=== PATIENT | male | born 1995 | race Caucasian/White ===

== ENCOUNTER 2016-09-20 18:14 | Emergency (ER) | payer OTHER ==
[2016-09-20 18:45] VITALS: BP 131/79
--- NOTE | 2016-09-20 19:24 | UC ---
Lower Extremity/Ankle HPI - HPI Summary HPI Summary: Struck R foot on dresser yesterday. Pain and swelling -- had marked swelling with bruising almost immediately, and since then area of bruising has spread out considerably. - History of Current Complaint Chief Complaint: UCLowerExtremity Stated Complaint: FOOT INJURY Time Seen by Provider: 09/20/16 19:03 Hx Obtained From: Patient Onset/Duration: Sudden Onset Severity Initially: Moderate Severity Currently: Moderate Aggravating Factor(s): Standing, Ambulation Alleviating Factor(s): Rest Able to Bear Weight: Yes - Allergies/Home Medications Allergies/Adverse Reactions: Allergies Allergy/AdvReac Type Severity Reaction Status Date / Time Bee Venom Allergy Anaphylatic Verified 09/20/16 18:37 Shock Home Medications: Home Medications Fluvoxamine (NF) [Luvox (NF)] 150 mg PO BID 09/20/16 [History Confirmed 09/20/16 ] Ibuprofen TAB* [Advil TAB*] 200 mg PO Q6H PRN 09/20/16 [History Confirmed ] QUEtiapine XR TAB* [SEROquel Xr TAB*] 50 mg PO BEDTIME 09/20/16 [History Confirmed 09/20/16] Quetiapine Fumarate [Seroquel Xr] 200 mg PO BEDTIME 09/20/16 [History Confirmed 09/20/16] Quetiapine Fumarate [Seroquel] 50 mg PO BEDTIME 09/20/16 [History Confirmed 02/28] PMH/Surg Hx/FS Hx/Imm Hx Previously Healthy: Yes - Surgical History Surgical History: None - Family History Known Family History: Positive: Hypertension - Social History Occupation: Unemployed Alcohol Use: None Substance Use Type: None Smoking Status (MU): Never Smoked Tobacco - Immunization History Most Recent Influenza Vaccination: none Review of Systems Constitutional: Negative Skin: Bruising Eyes: Negative ENT: Negative Respiratory: Negative Cardiovascular: Negative Gastrointestinal: Negative Genitourinary: Negative Motor: Negative Neurovascular: Negative Musculoskeletal: Arthralgia Neurological: Negative Psychological: Negative All Other Systems Reviewed And Are Negative: Yes Physical Exam Triage Information Reviewed: Yes Appearance: Well-Appearing, No Pain Distress, Well-Nourished Vital Signs: Initial Vital Signs Temp 97.8 F 09/20/16 18:41 Pulse 82 09/20/16 18:41 Resp 16 09/20/16 18:41 BP 131/79 09/20/16 18:41 Vital Signs Reviewed: Yes Eye Exam: Normal Eyes: Positive: Conjunctiva Clear ENT Exam: Normal ENT: Positive: Normal ENT inspection, Hearing grossly normal, Pharynx normal, TMs normal Dental Exam: Normal Neck exam: Normal Neck: Positive: Supple, Nontender, No Lymphadenopathy Respiratory Exam: Normal Respiratory: Positive: Chest non-tender, Lungs clear, Normal breath sounds, No respiratory distress, No accessory muscle use Cardiovascular Exam: Normal Cardiovascular: Positive: RRR, No Murmur Musculoskeletal: Positive: ROM Intact, Other: - swelling, bruising on R lateral foot, no point tenderness Neurological Exam: Normal Neurological: Positive: Alert Psychological Exam: Normal Skin Exam: Other - bruising Lower Extremity Course/Dx - Differential Dx/Diagnosis Provider Diagnoses: R foot hematoma. Elevated blood pressure due to pain Discharge - Discharge Plan Condition: Stable Disposition: HOME Patient Education Materials: Hematoma (ED) Referrals: Francie Aquino MD [Medical Doctor] - Additional Instructions: X-ray does not show fracture of bones. If you have prolonged pain or trouble with walking beyond the first week, please see your primary care provider.
--- NOTE | 2016-09-20 19:25 | RAD ---
INDICATION: Right foot injury COMPARISON: None TECHNIQUE: AP, lateral, and oblique views were obtained. FINDINGS: The bony structures, joint spaces, and soft tissues are normal for age. IMPRESSION: NEGATIVE EXAMINATION.
== END 2016-09-20 19:39 | disposition home or self-care (01) ==
LOC: UCEAST 18:14
DX: S90.31XA Contusion of right foot, initial encounter (principal); R03.0 Elevated blood-pressure reading, without diagnosis of hypertension; Z91.030 Bee allergy status; W22.03XA Walked into furniture, initial encounter
CPT/HCPCS: 99201; G0463